=== PATIENT | female | born 1985 | race African-American/Black ===

== ENCOUNTER 2023-12-28 13:51 | Inpatient (IN) | payer OTHER ==
[2023-12-28 15:03] VITALS: BMI 25.3
[2023-12-28] MEDS ORDERED: diazePAM 5 MG TABLET PO PRN (18:07)
[2023-12-28] MEDS ORDERED: ONDANSETRON *ODT* 4 MG TABLET SL PRN (18:08)
[2023-12-28] MEDS ORDERED: POLYETHYLENE GLYCOL (HEALTHYLAX) 3350 17 GM PACKET PO PRN (18:08)
[2023-12-28] MEDS ORDERED: IBUPROFEN 400 MG TABLET (FP) PO PRN (18:08)
[2023-12-28] MEDS ORDERED: DICYCLOMINE HCL 10 MG CAPSULE PO PRN (18:08)
[2023-12-28] MEDS ORDERED: BISMUTH SUBSALICYLATE 524 MG/30 ML PO PRN (18:08)
[2023-12-28] MEDS ORDERED: ACETAMINOPHEN 325 MG TABLET (FP) PO PRN (18:08)
[2023-12-28] MEDS ORDERED: guaiFENesin 600 MG TABLET.ER (FP) PO PRN (18:08)
[2023-12-28] MEDS ORDERED: BENZOCAINE/MENTHOL (CHLORASEPTIC ) LOZENGE MM PRN (18:08)
[2023-12-28] MEDS ORDERED: BENZONATATE 200 MG CAPSULE PO PRN (18:08)
[2023-12-28] MEDS ORDERED: MAG HYDROX/AL HYDROX/SIMETH 30 ML UNIT-DOSE CUP PO PRN (18:08)
[2023-12-28] MEDS ORDERED: LOPERAMIDE HCL 2 MG CAPSULE PO PRN (18:08)
[2023-12-28] MEDS ORDERED: MAGNESIUM HYDROX 2400MG/30ML ORAL SUSPENSION 30 ML CUP PO PRN (18:08)
[2023-12-28] MEDS ORDERED: IBUPROFEN 600 MG TABLET (FP) PO PRN (18:08)
[2023-12-28] MEDS ORDERED: diazePAM 5 MG TABLET ONE (19:11)
[2023-12-28] MEDS: diazePAM 5 MG TABLET PO ONE (19:15)
[2023-12-28] MEDS: THIAMINE 100 MG TABLET PO SCH (22:44)
[2023-12-28] MEDS: MELATONIN 5 MG TABLETS PO SCH (22:44)
[2023-12-28] MEDS: diazePAM 5 MG TABLET PO SCH (22:44)
[2023-12-29] MEDS: PRENATAL VITAMINS W/ FOLIC ACID TABLET (FP) PO SCH (09:40)
[2023-12-29] MEDS: CITALOPRAM HYDROBROMIDE 10 MG TABLET PO SCH (13:42)
[2023-12-29] MEDS: ARIPiprazole 5 MG TABLET PO SCH (13:42)
[2023-12-29 14:23] LABS: HEMATOCRIT 32.5 % (32.4-45.2); HEMOGLOBIN 10.7 GM/dL (10.7-15.3); MCH 29.1 pg (25.7-33.7); MCHC 32.8 g/dl (32.0-36.0); MEAN CELL VOLUME 88.5 fl (80-96); MEAN PLT VOLUME 7.7 fl (7.5-11.1); PLATELET COUNT 285 10^3/uL (134-434); RBC 3.67 M/mm3 (3.60-5.2); WHITE BLOOD COUNT 3.5 K/mm3 (4.0-10.0)
[2023-12-29 14:25] LABS: POTASSIUM 4.2 mmol/L (3.5-5.1)
[2023-12-29 14:31] LABS: ALBUMIN 3.5 g/dl (3.4-5.0); BLOOD UREA NITROGEN 11.6 mg/dL (7-18); CALCIUM 8.9 mg/dL (8.5-10.1)
[2023-12-29 14:35] LABS: CREATININE 1.1 mg/dL (0.55-1.3)
[2023-12-29 14:36] LABS: BILIRUBIN,TOTAL 0.7 mg/dL (0.2-1); TOT PROT 6.8 g/dl (6.4-8.2)
[2023-12-29 15:51] LABS: HIV INTERPRETATION NEGATIVE (NEGATIVE)
[2023-12-29] MEDS: hydrOXYzine PAMOATE 25 MG CAPSULE (FP) PO PRN (22:50)
[2023-12-30] MEDS: diazePAM 5 MG TABLET PO SCH (05:34)
[2023-12-30] MEDS: METHOCARBAMOL 500 MG TABLET PO PRN (09:25)
[2023-12-31] MEDS: diazePAM 5 MG TABLET PO SCH (05:33)
[2023-12-31 09:11] VITALS: BP 115/66; PULSE 89; RESP 18; TEMP 97.8
[2023-12-31] MEDS: NALOXONE (NYS OPIOID OVERDOSE PROGRAM) 4 MG/0.1 ML SPRAY NS SCH (10:43)
[2024-01-01] MEDS ORDERED: diazePAM 5 MG TABLET PO ONE (06:00)
== END 2023-12-31 09:58 | disposition home or self-care (01) | DRG 775 ==
LOC: YASAS 13:51 → Y6N 18:49
PROVIDERS: ADMIT Allergy & Immunology; ATTEND Surgery
PROC: HZ2ZZZZ Detoxification Services for Substance Abuse Treatment (ICD-10-PCS; principal; 2023-12-28)
DX: F10.230 Alcohol dependence with withdrawal, uncomplicated (principal); F12.10 Cannabis abuse, uncomplicated; F25.1 Schizoaffective disorder, depressive type; F10.282 Alcohol dependence with alcohol-induced sleep disorder; F33.1 Major depressive disorder, recurrent, moderate; F41.9 Anxiety disorder, unspecified; R73.9 Hyperglycemia, unspecified
CPT/HCPCS: 36415; 80053; 80305; 83036; 85027; 86780; 86803; 87389; 93005; 93010